=== PATIENT | male | born 1985 | race African-American/Black ===

== ENCOUNTER 2016-09-08 21:13 | Emergency (ER) | payer MEDICAID ==
[~2016-09-08] VITALS: Ht 180.3 cm; Wt 71.0 kg
[2016-09-08 21:29] VITALS: BP 146/88
== END 2016-09-09 01:46 | disposition left against medical advice (07) ==
LOC: ER 21:15
DX: Z04.8 Encounter for examination and observation for other specified reasons (principal); Z53.21 Procedure and treatment not carried out due to patient leaving prior to being seen by health care provider